=== PATIENT | male | born 1960 | race Caucasian/White ===

== ENCOUNTER 2021-09-24 13:50 | Inpatient (IN) | payer MEDICARE, SELFPAY ==
[2021-09-24] VITALS (13 sets, daily range): BP systolic 125–199; BP diastolic 75–110; PULSE 75–98; RESP 15–24; TEMP 36.2–36.5; O2SAT 94–99; BMI 27.1
--- NOTE | 2021-09-24 | DI.ECHO.S_ITS ---
[facility] +---------+ : : [address] : [address] : : : : [id number] : : : : Phone: [phone]+ Echocardiogram Report + + :Name: TITO CHEN Study Date: 09/25/2021 Height: 71.5 in: :[facility] ReadingLocation: Weight: 200 lb : : Gender: Male BSA: 2.1 m2 : :: 1960 Age: 61 yrs BP: 162/97 mmHg: :Reason For Study: R/O embolic source : :Ordering Physician: : :HARJINDER Performed By: Juanjo Lacey : :Referring: DARIAN URIBE : + + Interpretation Summary The ejection fraction is estimated to be 55-60%. Bubble studies was somewhat suboptimal (slide 62, 63 (w valsalva ) and 64 and 65 (with pushing on abdomen)). No evidence of shunting. There is no significant valvular heart disease. Procedure: A two-dimensional transthoracic echocardiogram with color flow and Doppler was performed. The study quality was technically adequate. There is no prior echocardiogram noted for this patient. The subcostal views were difficult to obtain and are suboptimal in quality. The patient was in normal sinus rhythm during the exam. Left Ventricle: The left ventricle is normal in size and wall thickness. The ejection fraction is estimated to be 55-60%. Left ventricular wall motion is normal. Right Ventricle: The right ventricle is normal in size and function. Atria: The left atrial size is normal. The right atrium is mildly dilated. Bubble studies was somewhat suboptimal (slide 62, 63 (w valsalva ) and 64 and 65 (with pushing on abdomen)). No evidence of shunting. Mitral Valve: The mitral valve is normal. There is no mitral regurgitation noted. Aortic Valve: The aortic valve is trileaflet. The aortic valve opens well. No aortic regurgitation is present. Tricuspid Valve: The tricuspid valve is normal. There is a trace or physiologic amount of tricuspid regurgitation. Pulmonary artery pressures cannot be estimated because of the lack of a measurable TR jet velocity but the IVC suggests a CVP of around 3 mmHg. Pulmonic Valve: The pulmonic valve is normal in structure and function. Great Vessels: The aortic root is borderline dilated. The ascending aorta is normal in size. The aortic arch is normal in size. The IVC is of normal diameter and collapses greater than 50% with a sniff. This suggests a low right atrial pressure of 3 mm Hg. Pericardium/ Pleura There is no pericardial effusion. There is an anterior echo-free space consistent with a fat pad. There is no pleural effusion. MMode/2D Measurements & Calculations LVIDd: 4.8 cm LVOT diam: 2.5 cm LVIDs: 3.3 cm Ao root diam: 3.8 cm FS: 31.3 % asc Aorta Diam: 3.5 cm IVSd: 1.1 cm Ao Arch Diam (Prox Trans): 2.5 cm LVPWd: 1.0 cm LV acevedo. diameter/BSA (cm/m^2): 2.3 LV sys. diameter/BSA (cm/m^2): 1.6 LA A2 area: 17.9 cm2 RA long axis: 6.0 cm LA A4 area: 16.2 cm2 IVC diam: 1.7 cm LA length (vol): 5.8 cm LA vol: 42.8 ml LA vol index: 20.2 ml/m2 TAPSE_phl: 1.8 cm Doppler Measurements & Calculations Ao V2 max: 96.1 cm/sec LVOT Max Juanpablo: 82.9 cm/sec Ao V2 mean: 69.2 cm/sec LV V1 max P.7 mmHg Ao max P.0 mmHg LV V1 VTI: 14.1 cm Ao mean P.0 mmHg MIGUEL A(I,D): 3.8 cm2 Ao V2 VTI: 18.4 cm MIGUEL A(V,D): 4.2 cm2 sev ratio: 0.77 MIGUEL A indexed to BSA (cm^2/m^2): 1.8 MV E max juanpablo: 53.1 cm/sec PA V2 max: 75.7 cm/sec MV A max juanpablo: 78.8 cm/sec PA V2 mean: 56.0 cm/sec MV E/A: 0.67 PA mean P.0 mmHg Med Peak E' Juanpablo: 5.0 cm/sec PA pr(Accel): 40.8 mmHg E/E' med: 10.6 Lat Peak E' Juanpablo: 6.2 cm/sec E/E' lat: 8.6 E/e' average: 9.6 MV dec time: 0.16 sec SV(LVOT): 69.2 ml AV VR_phl: 0.86 MIGUEL A(VTI)/BSA_phl: 1.8 MV P1/2t-pr_phl: 46.0 msec Reading Physician:12:36 PM
--- NOTE | 2021-09-24 14:07 | DI.RAD.S_ITS ---
PROCEDURE: XR CHEST 1V INDICATIONS: chest pain TECHNIQUE: One view of the chest was acquired. COMPARISON: None. FINDINGS: Surgical changes and devices: None. Lungs and pleura: Lungs are clear. No pleural effusions or pneumothorax. Mediastinum: Mediastinal contours appear normal. Heart size is normal. Bones and chest wall: No suspicious bony lesions. Overlying soft tissues appear unremarkable. IMPRESSION: No acute process. Dictated by: Vel Morris M.D. on 09/24/2021 at 13:21 Approved by: Vel Morris M.D. on 09/24/2021 at 13:21
--- NOTE | 2021-09-24 14:14 | ED_ITS ---
HPI - Altered Mental Status General Chief Complaint: Altered Mental Status Stated Complaint: Confusion Time Seen by Provider: 09/24/21 14:12 Source: patient and family Mode of arrival: Wheelchair Limitations: altered mental status History of Present Illness HPI narrative: I received a call from [facility] earlier today. The patient was feeling fuzzy.He seemed okay to come in the POV. He has not felt well for 2 days. It was noted that his systolic blood pressure was 180s at the time that phone call. The patient is now here, complaining of not feeling well. He has not felt well for about 2 days. He denies headache, visual change, no sore throat, no difficulty swallowing. He denies chest pain, cough or dyspnea. He has no abdominal complaints. He obeys commands, he participated quickly and neurology exam. He has displaying confusion. He is discharged to time. His son says he has been this way for about 2 days. He is ambulatory without discomfort. There is no history of stroke, no immediate concerns for infection. The patient has a history of colorectal cancer, treated about 2011. He has no abdominal pain, no change in bowels, and no weight loss. His care was elsewhere, we have no records here. A significant portion of patient's past medical history was obtained from the patient's son, the patient is obviously disoriented and does not have great recall for his past medical history Review of Systems Review of Systems Narrative: The patient is a vague historian. He can offer no details beyond HPI information. Patient History Medical History (Updated 09/24/21 @ 19:45 [facility] History of colon cancer No chronic diseases present Social History household members: none Smoking Status: Current every day smoker alcohol intake: current Smoking Status: Current every day smoker Substance Use Type: marijuana Exam Initial Vital Signs Initial Vital Signs: Vital Signs Temperature 97.1 F L 09/24/21 13:57 Pulse Rate 98 H 09/24/21 13:57 Respiratory Rate 20 09/24/21 13:57 Blood Pressure 199/110 H 09/24/21 13:57 Pulse Oximetry 99 09/24/21 13:57 Const General: cooperative, well groomed, anxious and other (Slow response.) Nutritional Appearance: average body habitus Orientation: Orientation (To person and place. Not oriented to time.) [facility] Head: normocephalic and atraumatic Face and sinus: normal facial exam Mouth: oral mucosae normal Throat: posterior oropharynx normal Eyes General: appearance normal, both eyes and all related structures Pupils: PERRL EOM: EOM intact bilaterally Other: No visual field deficits noted. Neck Neck: normal visual inspection, supple and No JVD Chest Chest: No tenderness Resp Auscultation: clear to auscultation bilaterally Cardio Palpation: normal PMI Rate: regular rate Rhythm: regular rhythm Heart Sounds: S1 normal, S2 normal and no murmurs Bruits: abdominal aortic bruit Pulses: radial pulses present GI Inspection: normal to inspection Palpation: soft, No guarding and No tender Auscultation: normal bowel sounds Back/Spine/Pelvis Back: normal to inspection Skin General: no rashes or lesions noted Neuro General: patient alert, patient awake, no meningeal signs, no focal motor deficits and CN's II-XI intact bilaterally Extrem General: normal to inspection, full ROM, no pedal edema and no calf tenderness Psych Appearance: disheveled Course Course Course Narrative: The patient presented with confusion, he was disoriented to time. Significant hypertension was noted. Labetalol was given out of concern for hypertensive urgency and a CVA. CT revealed multiple subacute CVAs. He is in normal sinus rhythm. Elevated D-dimer led to CTA of the chest, there was no PE. There is notable lymphadenopathy. He has a history of colorectal cancer, reportedly in remission. Noncontrast MRI of the brain again revealed multiple infarcts sites. Giving the patient's medical history and multiple radiologic findings, metastatic disease is suspected. The patient's blood pressure is 172, there has not been further management of his blood pressure allowing for permissive hypertension. The case was discussed with the hospitalist, Dr. Tovar. He is accepted for admission. Orders Ordered: ED Orders 09/24/21 14:07 XR chest 1V Stat EKG-12 Lead Stat 09/24/21 14:10 BNP [NT-proBNP (BNP-Adult 18+)] Stat Complete Blood Count AUTO DIFF Stat Comprehensive Metabolic Panel Stat D Dimer Stat Lipase Stat Magnesium Stat Troponin & CK Cardiac Panel Stat 09/24/21 14:20 Ethanol (ETOH) Stat 09/24/21 14:21 CT head/brain wo con Stat 09/24/21 14:52 COVID19 - ADMIT ([employer] swab/PCR) Stat 09/24/21 14:58 CT angio chest PE protocol Stat MR head/brain wo con Stat 09/24/21 16:29 tox [Urine Drug Screen, Rapid] Stat Acetaminophen (Acetaminophen 325 Mg Tablet) 650 mg PO Q6HR PRN PRN Reason: Fever/Mild Pain (1-3) Hydrocodone Bitart/Acetaminophen (Hydrocodone/Acet 5/325 Tablet) 1 tab PO Q4HR PRN PRN Reason: Pain, Moderate (4-6) Aspirin (Aspirin Ec 81 Mg Tablet) 81 mg PO DAILY [facility] Atorvastatin Calcium (Atorvastatin 20 Mg Tablet) 80 mg PO BEDTIME OREN Bisacodyl (Bisacodyl 10 Mg Supp) 10 mg [place] DAILY PRN PRN Reason: Constipation Clopidogrel Bisulfate (Clopidogrel 75 Mg Tablet) 75 mg PO DAILY [facility] Docusate Sodium (Docusate 100 Mg Capsule) 100 mg PO BID [facility] Enoxaparin Sodium (Enoxaparin 40 Mg/0.4 Ml Syringe) 40 mg SUBCUT DAILY [facility] Hydromorphone HCl (Hydromorphone 0.5 Mg Inj) 0.5 mg IV Q6H PRN PRN Reason: Pain, Moderate (4-6) Dextrose/Sodium Chloride (Dextrose 5%-0.9% Ns) 1,000 mls @ 100 mls/hr IV CONT OREN Last Admin: 09/24/21 19:40 Dose: 100 mls/hr Documented by: DinaKISELMA Ibuprofen (Ibuprofen 600 Mg Tablet) 600 mg PO Q6HR PRN PRN Reason: Fever/Mild Pain (1-3) Magnesium Hydroxide (Magnesium Hydroxide 30 Ml Udc) 30 ml PO DAILY PRN PRN Reason: Constipation Naloxone HCl (Naloxone 0.4 Mg/Ml Vial) 0.2 mg IV Q2MIN PRN PRN Reason: Opiate Reversal Ondansetron HCl (Ondansetron 4 Mg/2 Ml Inj) 4 mg IV Q8HR PRN PRN Reason: Nausea And Vomiting Sennosides (Sennosides 8.6 Mg Tablet) 17.2 mg PO BEDTIME [facility] Discontinued Medications Aspirin (Aspirin 81 Mg Chew Tab) 324 mg PO NOW ONE Stop: 09/24/21 16:26 Last Admin: 09/24/21 16:35 Dose: 324 mg Documented by: LAMBERTO Influenza Virus Vaccine (Influenza Vaccine Qiv 0.5 Ml Syringe) 0.5 ml IM .ONCE ONE Stop: 09/24/21 18:46 Labetalol HCl (Labetalol 20 Mg/4 Ml Syringe) 10 mg IV NOW ONE Stop: 09/24/21 14:22 Last Admin: 09/24/21 15:06 Dose: 10 mg Documented by: LAMBERTO Vital Signs Vital signs: Vital Signs - 8 hr 09/24/21 13:57 09/24/21 14:19 09/24/21 14:37 Temperature 97.1 F L Pulse Rate 98 H 93 H 93 H Respiratory Rate 20 24 24 Blood Pressure 199/110 H 190/105 H 186/105 H Pulse Oximetry 99 98 94 09/24/21 14:49 09/24/21 15:00 09/24/21 15:01 Temperature Pulse Rate 87 90 90 Respiratory Rate 17 22 22 Blood Pressure 169/103 H Pulse Oximetry 99 96 97 09/24/21 15:06 09/24/21 15:51 09/24/21 15:53 Temperature Pulse Rate 98 H 84 81 Respiratory Rate 18 Blood Pressure 199/110 H 174/99 H Pulse Oximetry 96 98 09/24/21 16:00 09/24/21 16:15 Temperature Pulse Rate 81 82 Respiratory Rate 15 Blood Pressure 174/99 H Pulse Oximetry 95 MDM - Altered Mental Status Lab Data Result diagrams: 09/24/21 14:10 09/24/21 14:10 Labs: Lab Results 09/24/21 09/24/21 09/24/21 Range/Units 14:10 14:10 14:10 WBC 11.8 H (4.5-11.0) X10^3/uL RBC 5.96 H (4.5-5.9) X10^6/uL Hgb 17.4 (13.5-17.5) g/dL Hct 51.6 (41-53) % MCV 86.6 (80-100) fL MCH 29.2 (26-34) PG MCHC 33.7 (30-36) % RDW 14.8 (11.6-14.8) % Plt Count 369 (150-400) X10^3/uL Neut % (Auto) 74.8 (50-75) % Lymph % (Auto) 15.9 L (25-40) % Vernon % (Auto) 7.5 (3-14) % Eos % (Auto) 1.0 L (2-4) % Baso % (Auto) 0.8 (0-2) % Neut # (Auto) 8800 H (7560-5815) /uL Lymph # (Auto) 1900 (4580-1630) /uL Vernon # (Auto) 900 (0-900) /uL Eos # (Auto) 100 (0-450) /uL Baso # (Auto) 100 (0-100) /uL D-Dimer > 5250 H (<230) ng/mL Sodium 139 (137-145) mmol/L Potassium 4.2 (3.4-5.1) mmol/L Chloride 104 (98-107) mmol/L Carbon Dioxide 28 (22-32) mmol/L BUN 9 (9-20) mg/dL Creatinine 1.04 (0.66-1.25) mg/dL Estimated GFR > 60.0 (>60) mL/min BUN/Creatinine Ratio 8.7 (6-22) Glucose 105 (80-110) mg/dL Calcium 10.2 (8.4-10.2) mg/dL Magnesium 2.0 (1.6-2.3) mg/dL Total Bilirubin 0.9 (0.2-1.3) mg/dL AST 24 (17-59) IU/L ALT 17 (<50) IU/L Alkaline Phosphatase 137 H (38-126) U/L Total Creatine Kinase 29 L (55-170) U/L CK-MB (CK-2) TNP CK-MB (CK-2) Rel Index TNP Troponin I < 0.012 (0.01-0.034) ng/mL NT-Pro-B Natriuret Pep 305 H (<125) pg/mL Total Protein 8.6 H (6.3-8.2) g/dL Albumin 4.5 (3.5-5.0) g/dL Globulin 4.1 (1.7-4.1) g/dL Albumin/Globulin Ratio 1.1 (1.0-2.8) Lipase 96 (23-300) U/L U Opiates 300ng/mL cut (Negative) Ur Oxycodone Screen (Negative) Urine Methadone Screen (Negative) Ur Barbiturates Screen (Negative) U Tricyclic Antidepress (Negative) Ur Phencyclidine Scrn (Negative) Ur Amphetamines Screen (Negative) U Methamphetamines Scrn (Negative) Ur MDMA Scrn (Ecstasy) (Negative) U Benzodiazepines Scrn (Negative) Urine Cocaine Screen (Negative) U Marijuana (THC) Screen (Negative) Ethyl Alcohol ( - 10) mg/dL SARS-CoV-2 (PCR) (Negative) 09/24/21 09/24/21 09/24/21 Range/Units 14:20 14:52 16:29 WBC (4.5-11.0) X10^3/uL RBC (4.5-5.9) X10^6/uL Hgb (13.5-17.5) g/dL Hct (41-53) % MCV (80-100) fL MCH (26-34) PG MCHC (30-36) % RDW (11.6-14.8) % Plt Count (150-400) X10^3/uL Neut % (Auto) (50-75) % Lymph % (Auto) (25-40) % Vernon % (Auto) (3-14) % Eos % (Auto) (2-4) % Baso % (Auto) (0-2) % Neut # (Auto) (1011-1595) /uL Lymph # (Auto) (8667-5007) /uL Vernon # (Auto) (0-900) /uL Eos # (Auto) (0-450) /uL Baso # (Auto) (0-100) /uL D-Dimer (<230) ng/mL Sodium (137-145) mmol/L Potassium (3.4-5.1) mmol/L Chloride (98-107) mmol/L Carbon Dioxide (22-32) mmol/L BUN (9-20) mg/dL Creatinine (0.66-1.25) mg/dL Estimated GFR (>60) mL/min BUN/Creatinine Ratio (6-22) Glucose (80-110) mg/dL Calcium (8.4-10.2) mg/dL Magnesium (1.6-2.3) mg/dL Total Bilirubin (0.2-1.3) mg/dL AST (17-59) IU/L ALT (<50) IU/L Alkaline Phosphatase (38-126) U/L Total Creatine Kinase (55-170) U/L CK-MB (CK-2) CK-MB (CK-2) Rel Index Troponin I (0.01-0.034) ng/mL NT-Pro-B Natriuret Pep (<125) pg/mL Total Protein (6.3-8.2) g/dL Albumin (3.5-5.0) g/dL Globulin (1.7-4.1) g/dL Albumin/Globulin Ratio (1.0-2.8) Lipase (23-300) U/L U Opiates 300ng/mL cut Negative (Negative) Ur Oxycodone Screen Negative (Negative) Urine Methadone Screen Negative (Negative) Ur Barbiturates Screen Negative (Negative) U Tricyclic Antidepress Negative (Negative) Ur Phencyclidine Scrn Negative (Negative) Ur Amphetamines Screen Negative (Negative) U Methamphetamines Scrn Negative (Negative) Ur MDMA Scrn (Ecstasy) Negative (Negative) U Benzodiazepines Scrn Negative (Negative) Urine Cocaine Screen Negative (Negative) U Marijuana (THC) Screen Positive H (Negative) Ethyl Alcohol < 10 ( - 10) mg/dL SARS-CoV-2 (PCR) Negative (Negative) Imaging Data Chest x-ray: Radiologist's Impression: No acute process. CT scan - head: Radiologist's Impression: [place] [address] CT Scan Report Signed Patient: Kang Dexter MR#: [id number] : 1960 Acct:[id number] Age/Sex: 61 / M Date of Service: 09/24/21 Loc: ED Accession Number: [id number] ?? Procedure: CT head/brain wo con Ordering Provider: Contreras Pelayo MD PROCEDURE:? CT HEAD/BRAIN WO CON ? INDICATIONS:? confusion ? TECHNIQUE:? Noncontrast 4.5 mm thick angled axial sections acquired from the foramen magnum to the vertex, with coronal and sagittal reformats.? For radiation dose reduction, the following was used:? automated exposure control, adjustment of mA and/or kV according to patient size.? ? COMPARISON:? None. ? FINDINGS:? Image quality:? Excellent.? ? CSF spaces:? Basal cisterns are patent.? No extra-axial fluid collections.? The ventricles are symmetric in size and shape.? ? Brain:? No intracranial bleeds or masses.? Moderate subacute versus chronic infarct within the right parietal occipital lobe.? Small chronic versus subacute left frontal infarct.? There is cerebral volume loss for age, with resultant ventricular and sulcal prominence.? There are periventricular and deep white matter chronic small vessel ischemic changes.? There is intracranial internal carotid artery atherosclerosis.? ? Skull and face:? Calvarium and visualized facial bones appear intact, without suspicious lesions.? ? Sinuses:? Visualized sinuses and mastoids are clear.? ? IMPRESSION:? 1. 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 2. No acute intracranial abnormality.? ? ? Dictated by: Vel Morris M.D. on 09/24/2021 at 13:44 ? ? Approved by: Vel Morris M.D. on 09/24/2021 at 13:45?? CTA chest: Radiologist's Impression: [address] [address] [address] Scan Report Signed Patient: Kang Dexter MR#: [id number] : 1960 Acct:[id number] Age/Sex: 61 / M Date of Service: 09/24/21 Loc: ED Accession Number: [id number] ?? Procedure: CT angio chest PE protocol Ordering Provider: Contreras Pelayo MD PROCEDURE:? CT ANGIO CHEST PE PROTOCOL ? INDICATIONS:? CVA ? TECHNIQUE:? After the administration of intravenous contrast, 2 mm thick sections acquired from the pulmonary apices to the posterior costophrenic angles.? 3-dimensional maximum intensity projection (MIP) coronal and sagittal reformats were then acquired through the thorax.? For radiation dose reduction, the following was used:? automated exposure control, adjustment of mA and/or kV according to patient size.? ? COMPARISON:? [facility], CR, XR CHEST 1V, 09/24/2021, 14:10. ? FINDINGS:? Image quality:? Excellent.? ? Pulmonary arteries:? Pulmonary arteries are normal in size, and demonstrate no intraluminal filling defects to suggest central pulmonary embolism.? ? Lungs and pleura:? Mild apical predominant emphysematous changes.? No acute airspace opacity.? No pleural effusions or pneumothorax.? Central and peripheral airways are patent.? ? Mediastinum:? Normal heart size.? No pericardial effusion.? Mild coronary atherosclerosis.? There are numerous prominent and a few threshold enlarged upper mediastinal lymph nodes (including precarinal and paratracheal and subcarinal lymph nodes as well as some para-esopgaheal lymph nodes).? These are nonspecific but may be reactive. ? Bones and chest wall:? No suspicious bony lesions.? Ribs and thoracic spine appear intact throughout.? Thyroid gland uniform.? No axillary or supraclavicular adenopathy.? ? Abdomen:? Visualized upper abdominal solid organs appear normal in the early a rterial phase of enhancement.? ? IMPRESSION:? Mild mediastinal lymphadenopathy, nonspecific.? This could be reactive although primary lymphoproliferative disorder or metastatic disease could appear similar.? Clinical correlation will be needed along with potentially follow-up to help differentiate. ? No acute airspace opacity in the lungs.? Mild apical predominant emphysematous changes. ? No pulmonary embolism. ? ? Dictated by: Sidney Blake M.D. on 09/24/2021 at 15:16 ? ? Approved by: Sidney Blake M.D. on 09/24/2021 at 15:21?? Brain MRI: Radiologist's Impression: [facility] [address] Magnetic Resonance Report Signed Patient: Kang Dexter MR#: [id number] : 1960 Acct:[id number] Age/Sex: 61 / M Date of Service: 09/24/21 Loc: ED Accession Number: [id number] ?? Procedure: MR head/brain wo con Ordering Provider: Contreras Pelayo MD PROCEDURE:? MR HEAD/BRAIN WO CON ? INDICATIONS:? CVA ? TECHNIQUE:? Noncontrast axial T1 spin echo, axial T2 fast spin echo, sagittal and axial FLAIR, coronal T2 fast spin echo, axial gradient echo, axial diffusion and ADC through the brain.? ? COMPARISON:? [facility], CT, CT HEAD/BRAIN WO CON, 09/24/2021, 14:37. ? FINDINGS:? Image quality:? Excellent.? ? CSF Spaces:? Basal cisterns are patent.? No extra-axial fluid collections.? Ventricles are normal in size and shape.? ? Brain:? Global cerebral volume loss with moderate chronic microvascular ischemic changes. ?Remote right parietal infarct with encephalomalacia and gliosis.? There are 2 nonspecific areas of restricted diffusion with corresponding increased FLAIR signal in the left frontal lobe and left posterior parieto-occipital lobe.? These likely represent subacute infarcts although this is not entirely definitive.? No findings of mass effect or midline shift.? The major intracranial vascular flow-related signal voids are maintained. ? Skull and face:? Calvarium has normal marrow signal.? Orbits appear normal.? ? Sinuses:? Sinuses and mastoids are clear.? ? IMPRESSION:? Areas of restricted diffusion in the left frontal lobe and left parieto- occipital lobe are most likely subacute infarcts, although this is not entirely definitive and there is some concern for metastatic disease given the history of colon cancer.? A follow-up contrast-enhanced exam is recommended. ? ? ? Remote right parietal lobe infarct with encephalomalacia and gliosis. ? Global cerebral volume loss and moderate chronic microvascular ischemic change. ? Dictated by: Sidney Blake M.D. on 09/24/2021 at 15:41 ? ? Approved by: Sidney Blake M.D. on 09/24/2021 at 15:48?? ECG Data Attestation: I personally reviewed and interpreted this ECG as follows: (Normal sinus rhythm rate 93 beats per minute. Left axis deviation. Incomplete RBBB. Possible old inferior [place]. No acute ST T wave changes.) Critical Care Time Critical Care Time Critical Care Time: Yes Total Critical Care Time: 60 Attestation: Time included initial assessment the patient, evaluation EKG, radiology and lab data, and further discussion with the patient and his son. The patient has been informed of the clinical findings. The case was discussed with the accepting physician. Discharge Plan Departure Patient Disposition: Admitted As Inpatient Clinical Impression: CVA (cerebral vascular accident), Hypertensive urgency, D-dimer, elevated, Lymphadenopathy, thoracic, History of colorectal cancer Admit Date/Time: 09/24/21 16:30 Admit Provider: Debi Tovar
--- NOTE | 2021-09-24 14:21 | DI.CT.S_ITS ---
PROCEDURE: CT HEAD/BRAIN WO CON INDICATIONS: confusion TECHNIQUE: Noncontrast 4.5 mm thick angled axial sections acquired from the foramen magnum to the vertex, with coronal and sagittal reformats. For radiation dose reduction, the following was used: automated exposure control, adjustment of mA and/or kV according to patient size. COMPARISON: None. FINDINGS: Image quality: Excellent. CSF spaces: Basal cisterns are patent. No extra-axial fluid collections. The ventricles are symmetric in size and shape. Brain: No intracranial bleeds or masses. Moderate subacute versus chronic infarct within the right parietal occipital lobe. Small chronic versus subacute left frontal infarct. There is cerebral volume loss for age, with resultant ventricular and sulcal prominence. There are periventricular and deep white matter chronic small vessel ischemic changes. There is intracranial internal carotid artery atherosclerosis. Skull and face: Calvarium and visualized facial bones appear intact, without suspicious lesions. Sinuses: Visualized sinuses and mastoids are clear. IMPRESSION: 1. 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 2. No acute intracranial abnormality. Dictated by: Vel Morris M.D. on 09/24/2021 at 13:44 Approved by: Vel Morris M.D. on 09/24/2021 at 13:45
[2021-09-24 14:23] LABS: Add Manual Diff / Slide Review NO; Basophils Absolute Auto 100 /uL (0-100); Basophils Percent Auto 0.8 % (0-2); Eosinophils Absolute Auto 100 /uL (0-450); Hematocrit 51.6 % (41-53); Hemoglobin 17.4 g/dL (13.5-17.5); Lymphocytes Absolute Auto 1900 /uL (1100-4500); Lymphocytes Percent Auto 15.9 % (25-40); Mean Corpuscular HGB Conc 33.7 % (30-36); Mean Corpuscular Hemoglobin 29.2 PG (26-34); Mean Corpuscular Volume 86.6 fL (80-100); Monocytes Absolute Auto 900 /uL (0-900); Monocytes Percent Auto 7.5 % (3-14); Neutrophils Absolute Auto 8800 /uL (1500-7000); Neutrophils Percent Auto 74.8 % (50-75); Platelet Count 369 X10^3/uL (150-400); Red Blood Cell Count 5.96 X10^6/uL (4.5-5.9); Red Cell Distribution Width 14.8 % (11.6-14.8); White Blood Cell Count 11.8 X10^3/uL (4.5-11.0)
[2021-09-24 14:34] LABS: Alanine Aminotransferase 17 IU/L (<50); Albumin 4.5 g/dL (3.5-5.0); Albumin Globulin Ratio 1.1 (1.0-2.8); Alkaline Phosphatase 137 U/L (38-126); Aspartate Aminotransferase 24 IU/L (17-59); BUN Creatinine Ratio 8.7 (6-22); Bilirubin Total 0.9 mg/dL (0.2-1.3); Blood Urea Nitrogen 9 mg/dL (9-20); Calcium 10.2 mg/dL (8.4-10.2); Carbon Dioxide 28 mmol/L (22-32); Chloride 104 mmol/L (98-107); Creatine Kinase 29 U/L (55-170); Estimated Glomerular Filt Rate > 60.0 mL/min (>60); Globulin 4.1 g/dL (1.7-4.1); Glucose 105 mg/dL (80-110); HEMOLYSIS < 15 (0-50); Lipase 96 U/L (23-300); Potassium 4.2 mmol/L (3.4-5.1); Sodium 139 mmol/L (137-145); Total Protein 8.6 g/dL (6.3-8.2)
[2021-09-24 14:41] LABS: D Dimer > 5250 ng/mL (<230)
[2021-09-24 14:46] LABS: Ethanol (ETOH) < 10 mg/dL
[2021-09-24 14:46] LABS: NT-proBNP (BNP-Adult 18+) 305 pg/mL (<125); Troponin I < 0.012 ng/mL (0.01-0.034)
--- NOTE | 2021-09-24 14:58 | DI.MRI.S_ITS ---
PROCEDURE: MR HEAD/BRAIN WO CON INDICATIONS: CVA TECHNIQUE: Noncontrast axial T1 spin echo, axial T2 fast spin echo, sagittal and axial FLAIR, coronal T2 fast spin echo, axial gradient echo, axial diffusion and ADC through the brain. COMPARISON: [facility], CT, CT HEAD/BRAIN WO CON, 09/24/2021, 14:37. FINDINGS: Image quality: Excellent. CSF Spaces: Basal cisterns are patent. No extra-axial fluid collections. Ventricles are normal in size and shape. Brain: Global cerebral volume loss with moderate chronic microvascular ischemic changes. Remote right parietal infarct with encephalomalacia and gliosis. There are 2 nonspecific areas of restricted diffusion with corresponding increased FLAIR signal in the left frontal lobe and left posterior parieto-occipital lobe. These likely represent subacute infarcts although this is not entirely definitive. No findings of mass effect or midline shift. The major intracranial vascular flow-related signal voids are maintained. Skull and face: Calvarium has normal marrow signal. Orbits appear normal. Sinuses: Sinuses and mastoids are clear. IMPRESSION: Areas of restricted diffusion in the left frontal lobe and left parieto-occipital lobe are most likely subacute infarcts, although this is not entirely definitive and there is some concern for metastatic disease given the history of colon cancer. A follow-up contrast-enhanced exam is recommended. Remote right parietal lobe infarct with encephalomalacia and gliosis. Global cerebral volume loss and moderate chronic microvascular ischemic change. Dictated by: Sidney Blake M.D. on 09/24/2021 at 15:41 Approved by: Sidney Blake M.D. on 09/24/2021 at 15:48
--- NOTE | 2021-09-24 14:58 | DI.CT.S_ITS ---
PROCEDURE: CT ANGIO CHEST PE PROTOCOL INDICATIONS: CVA TECHNIQUE: After the administration of intravenous contrast, 2 mm thick sections acquired from the pulmonary apices to the posterior costophrenic angles. 3-dimensional maximum intensity projection (MIP) coronal and sagittal reformats were then acquired through the thorax. For radiation dose reduction, the following was used: automated exposure control, adjustment of mA and/or kV according to patient size. COMPARISON: [facility], CR, XR CHEST 1V, 09/24/2021, 14:10. FINDINGS: Image quality: Excellent. Pulmonary arteries: Pulmonary arteries are normal in size, and demonstrate no intraluminal filling defects to suggest central pulmonary embolism. Lungs and pleura: Mild apical predominant emphysematous changes. No acute airspace opacity. No pleural effusions or pneumothorax. Central and peripheral airways are patent. Mediastinum: Normal heart size. No pericardial effusion. Mild coronary atherosclerosis. There are numerous prominent and a few threshold enlarged upper mediastinal lymph nodes (including precarinal and paratracheal and subcarinal lymph nodes as well as some para-esopgaheal lymph nodes). These are nonspecific but may be reactive. Bones and chest wall: No suspicious bony lesions. Ribs and thoracic spine appear intact throughout. Thyroid gland uniform. No axillary or supraclavicular adenopathy. Abdomen: Visualized upper abdominal solid organs appear normal in the early arterial phase of enhancement. IMPRESSION: Mild mediastinal lymphadenopathy, nonspecific. This could be reactive although primary lymphoproliferative disorder or metastatic disease could appear similar. Clinical correlation will be needed along with potentially follow-up to help differentiate. No acute airspace opacity in the lungs. Mild apical predominant emphysematous changes. No pulmonary embolism. Dictated by: Sidney Blake M.D. on 09/24/2021 at 15:16 Approved by: Sidney Blake M.D. on 09/24/2021 at 15:21
[2021-09-24] MEDS: LABETALOL 20 MG/4 ML SYRINGE 10 MG IV (15:06)
[2021-09-24 15:53] LABS: COVID19 - ADMIT (NP swab/PCR) Negative (Negative)
[2021-09-24] MEDS: ASPIRIN 81 MG CHEW TAB 324 MG PO (16:35)
[2021-09-24 16:38] LABS: UR Morphine/Opiate cutoff 300 Negative (Negative); Ur Creatinine Normal (Normal); Ur Specific Gravity Normal (Normal); Urine Amphetamines Negative (Negative); Urine Barbiturates Negative (Negative); Urine Benzodiazepines Negative (Negative); Urine Cocaine Negative (Negative); Urine MDMA Negative (Negative); Urine Methadone Negative (Negative); Urine Methamphetamines Negative (Negative); Urine Oxycodone Negative (Negative); Urine Phencyclidine Negative (Negative); Urine Tetrahydrocannabinol Positive (Negative); Urine Tricyclic Antidepressant Negative (Negative); Urine pH Normal (Normal)
--- NOTE | 2021-09-24 17:22 | PC.NURSE ---
Day shift: Pt on unit from ED at approx 1715. He is calm ad cooperative. He is also A&Ox4. Son in room for support. Oriented to room and call light. Agrees to not get OOB w/o help from staff.
--- NOTE | 2021-09-24 19:24 | P.HP_ITS ---
History of Present Illness History of Present Illness Date Patient Seen: 09/24/21 Time Patient Seen: 19:24 Chief complaint: Confusion Narrative: Kang Dexter is a 61 yr old male with a hx of colon cancer 2011 brought in to ED by [facility] earlier today.? The patient was reported to feeling poorly x2 days, he present to the ED with slow speech, confused, limited participation in HPI, ROS, or medications. The son was only able to confirm a history of colon cancer.?The patient denied headache, visual change, no sore throat, no difficulty swallowing, chest pain, cough or dyspnea, or abdominal complaints.? He has no abdominal pain, no change in bowels, and no weight loss.? His care was elsewhere, we have no records here.? He obeys commands, he participated in neurology exam.? He has displaying confusion.? He is discharged to time.? His son says he has been this way for about 2 days.? He is ambulatory without discomfort.? There is no history of stroke, no immediate concerns for infection.? A significant portion of patient's past medical history was obtained in ED from the patient's son, being the patient was disoriented, confused and had no recall. Upon admit patient is alert and orientated denies taking any medication at this time but states that he previously had been on multiple medications but unable to recall what they were or for what medical conditions. Patient originally presented to the ED with a BP 180/192, upon admit temp 97.1?, BP 174/99, HR 82, R 15, O2 saturation 95% on room air. Patient does have a mildly elevated WBC 11.8, with a left shift neutrophils 8800, the remainder of CBC and CMP WNL. Patient does have alk phos 137. Urinalysis was negative for infection tox screen was positive for THC. Total creatinine kinase 29, troponin WNL, BNP 305, EtOH negative. Patient's EKG demonstrated Normal sinus rhythm wit h a left axis deviation, incomplete right bundle branch block, inferior infarct , age undetermined. Patient's chest x-ray demonstrated no acute cardiopulmonary processes. Patient's D-dimer> 5250. Patient's CTA demonstrated mild mediastinal lymphadenopathy, nonspecific.? This could be reactive although primary lymphoproliferative disorder or metastatic disease could appear similar.? Clinical correlation will be needed along with potentially follow-up to help differentiate. No acute airspace opacity in the lungs.? Mild apical predominant emphysematous changes. No pulmonary embolism. Head CT demonstrated subacute versus chronic right parietal occipital and left frontal lobe infarcts, with no acute intracranial abnormality.? Patient's brain MRI demonstrated areas of restricted diffusion in the left frontal lobe and left parieto-occipital lobe are most likely subacute infarcts, although this is not entirely definitive and there is some concern for metastatic disease given the history of colon cancer. Remote right parietal lobe infarct with encephalomalacia and gliosis. Global cerebral volume loss and moderate chronic microvascular ischemic change. Patient to be admitted for subacute CVA, hypertensive urgency, lymphadenopathy, leukocytosis thoracic, possible metastatic disease, with a history of colon cancer. Patient History Medical History (Updated 09/24/21 @ 19:45 by LIBERTY Sullivan) History of colon cancer No chronic diseases present Family & Social History Family History (Updated 09/24/21 @ 20:23 by LIBERTY Sullivan) Mother Cancer Father Cancer Social History: household members lives alone, retired, grown son lives close by. Prior Living Arrangements House Safety & Behavioral: Feels Safe in Current Yes Environment Been Physically Hurt or No Threatened By a Person Suicidal Ideation Description None Suicide Plan Description No Plan Tobacco & Substance use: Tobacco type cigarettes,cannabis/marijuana Smoking Status Current every day smoker Smoking packs per day 0.5 x 40 yrs alcohol intake current alcohol intake frequency holiday/special occasion Substance Use Type marijuana Review of Systems Review of Systems Narrative: All 12 point systems reviewed with the patient and are negative except otherwise documented. Exam Vital Signs (past 8 hours): - 09/24/21 13:57 09/24/21 14:19 09/24/21 14:37 Temperature 97.1 F L Pulse Rate 98 H 93 H 93 H Respiratory Rate 20 24 24 Blood Pressure 199/110 H 190/105 H 186/105 H Pulse Oximetry 99 98 94 09/24/21 14:49 09/24/21 15:00 09/24/21 15:01 Temperature Pulse Rate 87 90 90 Respiratory Rate 17 22 22 Blood Pressure 169/103 H Pulse Oximetry 99 96 97 09/24/21 15:06 09/24/21 15:51 09/24/21 15:53 Temperature Pulse Rate 98 H 84 81 Respiratory Rate 18 Blood Pressure 199/110 H 174/99 H Pulse Oximetry 96 98 09/24/21 16:00 09/24/21 16:15 Temperature Pulse Rate 81 82 Respiratory Rate 15 Blood Pressure 174/99 H Pulse Oximetry 95 Oxygen Delivery Method Room Air Narrative Exam Narrative: General: Patient is a well-developed, well-nourished male in no distress at this time. HEENT: Normocephalic, atraumatic, extraocular muscles intact, oral pharynx is clear and mucous membranes are moist. Neck is supple and symmetric, trachea is midline, no adenopathy, no thyroid enlargement, nontender, no masses palpated. Negative for JVD Chest: Normal AP diameter and contour without kyphoscoliosis, no nasal flaring, retractions, or tachypneic labored breathing Lungs: Auscultation of all lung bell are clear without adventitious sounds, wheezes, rhonchi, or rales. Cardio: S1 & S2 with regular rate and rhythm without murmur, rubs, or gallops, no carotid bruit, no cardiac pulsations present. Abdomen: Soft nontender, negative for organomegaly, or masses. Bowel sounds are present in all 4 quadrants without guarding or rebound, no CVA tenderness. Musculoskeletal: Muscle strength and tone are equal within normal limits, no deformity, crepitus, effusions, cyanosis, clubbing or edema present. Full range of motion intact radial and pedal pulses are normal. Skin: Warm dry and intact without rashes, ulcerations or petechiae. Neuro: Alert, awake, and orientated-but has very poor recall, strength is +5/5 in all extremities, sensation to touch intact, no gross deficits noted of crania l nerves. Psych: Patient has a disheveled appearance. Objective Labs Result Diagrams: 09/24/21 14:10 09/24/21 14:10 Labs: Laboratory Results - last 24 hr 09/24/21 09/24/21 09/24/21 14:10 14:10 14:10 WBC 11.8 H RBC 5.96 H Hgb 17.4 Hct 51.6 MCV 86.6 MCH 29.2 MCHC 33.7 RDW 14.8 Plt Count 369 Neut % (Auto) 74.8 Lymph % (Auto) 15.9 L [place] % (Auto) 7.5 Eos % (Auto) 1.0 L Baso % (Auto) 0.8 Neut # (Auto) 8800 H Lymph # (Auto) 1900 [place] # (Auto) 900 Eos # (Auto) 100 Baso # (Auto) 100 D-Dimer > 5250 H Sodium 139 Potassium 4.2 Chloride 104 Carbon Dioxide 28 BUN 9 Creatinine 1.04 Estimated GFR > 60.0 BUN/Creatinine Ratio 8.7 Glucose 105 Calcium 10.2 Magnesium 2.0 Total Bilirubin 0.9 AST 24 ALT 17 Alkaline Phosphatase 137 H Total Creatine Kinase 29 L CK-MB (CK-2) TNP CK-MB (CK-2) Rel Index TNP Troponin I < 0.012 NT-Pro-B Natriuret Pep 305 H Total Protein 8.6 H Albumin 4.5 Globulin 4.1 Albumin/Globulin Ratio 1.1 Lipase 96 U Opiates 300ng/mL cut Ur Oxycodone Screen Urine Methadone Screen Ur Barbiturates Screen U Tricyclic Antidepress Ur Phencyclidine Scrn Ur Amphetamines Screen U Methamphetamines Scrn Ur MDMA Scrn (Ecstasy) U Benzodiazepines Scrn Urine Cocaine Screen U Marijuana (THC) Screen Ethyl Alcohol SARS-CoV-2 (PCR) 09/24/21 09/24/21 09/24/21 14:20 14:52 16:29 WBC RBC Hgb Hct MCV MCH MCHC RDW Plt Count Neut % (Auto) Lymph % (Auto) [place] % (Auto) Eos % (Auto) Baso % (Auto) Neut # (Auto) Lymph # (Auto) [place] # (Auto) Eos # (Auto) Baso # (Auto) D-Dimer Sodium Potassium Chloride Carbon Dioxide BUN Creatinine Estimated GFR BUN/Creatinine Ratio Glucose Calcium Magnesium Total Bilirubin AST ALT Alkaline Phosphatase Total Creatine Kinase CK-MB (CK-2) CK-MB (CK-2) Rel Index Troponin I NT-Pro-B Natriuret Pep Total Protein Albumin Globulin Albumin/Globulin Ratio Lipase U Opiates 300ng/mL cut Negative Ur Oxycodone Screen Negative Urine Methadone Screen Negative Ur Barbiturates Screen Negative U Tricyclic Antidepress Negative Ur Phencyclidine Scrn Negative Ur Amphetamines Screen Negative U Methamphetamines Scrn Negative Ur MDMA Scrn (Ecstasy) Negative U Benzodiazepines Scrn Negative Urine Cocaine Screen Negative U Marijuana (THC) Screen Positive H Ethyl Alcohol < 10 SARS-CoV-2 (PCR) Negative Assessment & Plan Assessment & Plan narrative: Kang Dexter is a 61-year-old female who was brought over from [facility], where he was found by EMS to be confused with slow speech. Patient has a history of colon cancer in 2011. Patient was found to have hypertensive urgency, multiple subacute infarcts on brain MRI, also thoracic lymphadenopathy with leukocytosis and a left shift. Due to patient's confusion unable to obtain accurate HPI, ROS, personal medical history, or medications. Patient has not been seen at [facility] or by failure did priors so no records exist in our system. Patient admitted for multiple subacute CVA, hypertensive urgency, lymphadenopathy of the thoracic, with leukocytosis, suspect metastatic disease in the setting of history of colon cancer 2011. 1. Subacute CVA, left parieto-occipital lobe, multiple, in the setting of hypertensive urgency, tobacco abuse, acute, present on admission -differential diagnosis TIA, stroke, ischemic stroke, intracranial hemorrhage, subdural hematoma, epidural hematoma, seizure, brain tumor, migraine, vertigo, hypoglycemia, [place] Tannery syndrome, multiple sclerosis, aortic dissection. -patient admitted for risk stratification -NIH:1 -half pack per day times 40 years tobacco abuse -patient education regarding smoking cessation -initial BP readings 199/110, 190/105, 186/105, 180/192-patient is now stable with a BP of 174/99 -Start lisinopril 20mg QD tomorrow -Lipid panel ordered -D-dimer> 5250. -CTA demonstrated no acute airspace opacity in the lungs.? Mild apical predominant emphysematous changes. No pulmonary embolism. -Head CT demonstrated subacute versus chronic right parietal occipital and left frontal lobe infarcts, with no acute intracranial abnormality.? -Brain MRI demonstrated areas of restricted diffusion in the left frontal lobe and left parieto-occipital lobe are most likely subacute infarcts, although this is not entirely definitive and there is some concern for metastatic disease given the history of colon cancer. Remote right parietal lobe infarct with encephalomalacia and gliosis. Global cerebral volume loss and moderate chronic microvascular ischemic change. -patient placed on Plavix 75 mg, ASA 81 mg, Lipitor 80 mg, Lovenox 40 mg -echo ordered for tomorrow -D5 normal saline at 100 cc/HR-stop as midnight 09/24/2021 -Recommend outpatient neurology follow-up upon discaharge. 2. Lymphadenopathy, mediastinal/thoracic, with leukocytosis with left shift, in the setting of history of colon cancer 2011, acute on chronic, present on admission -suspect metastatic disease-lung cancer possible secondary to colon cancer. -Family History: mother of pancreatic cancer, father of brain cancer at 43 years of age -CTA demonstrated mild mediastinal lymphadenopathy, nonspecific.? This could be reactive although primary lymphoproliferative disorder or metastatic disease could appear similar. -procalcitonin, GGT ordered -recommend outpatient onocology consult -consider MRI w/contrast for further evaluation -WBC 11.8, neutrophils 8800 3. Overweight as evidence by BMI of 27.1, acute on chronic, present on admission -dietary counseling to be ordered Code status:Full Surrogate decision maker: Son Sebas Dexter COVID PCR:Negative COVID vaccination: Moderna 2020 fully DVT/VTE prophylaxis:Lovenox 40mg & SCD's Disposition: Patient admitted for observation risk stratification, expected length stay less than 2 midnights I have utilized all available immediate resources to obtain, update, or review the patient's current medications. I confirmed that the patient's advanced care plan is present, Code status is documented and/or surrogate decision maker is listed in the patient's medical record. Time Spent With Patient Critical Care time: I spent a total of [] minutes of critical care time on this patient's care today; this time is exclusive of procedural time. Scores GCS Marysol coma scale eye opening: Spontaneous Marysol coma scale verbal response: Orientated Olds coma scale motor response: Obey commands Olds coma scale total score: 15 NIHSS Level of Conciousness: Alert, keenly responsive Ask month/age: Answers both questions correctly. Open/close eyes, close hand: Performs both tasks correctly Best gaze horizontal: Normal Visual bell: Partial hemianopia Facial palsy: Normal symetrical movement Left arm drift: No drift for full 10 sec Right arm drift: No drift for full 10 sec Left leg drift: No drift for full 5 sec Right leg drift: No drift for full 5 sec Limb ataxia: Absent Sensory on face/arms/legs: Normal, no sensory loss Best language: No aphasia, normal Dysarthria: Normal Extinction or inattention: No abnormality Total NIH Stroke scale score: 1
[2021-09-24] MEDS: DEXTROSE 5%-0.9% NS 1,000 ML 100 ML IV (19:40)
[2021-09-24 20:25] LABS: Cholesterol 237 mg/dL (140-199); HDL Cholesterol 34 mg/dL (40-60); LDL Cholesterol Calculated 178 mg/dL (<100); Triglycerides 123 mg/dL (35-150)
[2021-09-24 20:43] LABS: Procalcitonin 0.07 ng/mL (<0.5)
[2021-09-24 20:57] LABS: Gamma Glutamyl Transpeptidase 31 U/L (15-73)
[2021-09-24] MEDS: ATORVASTATIN 20 MG TABLET 80 MG PO (21:05)
[2021-09-24 21:10] LABS: Troponin I < 0.012 ng/mL (0.01-0.034)
[2021-09-25 05:00] VITALS: BP 134/77; PULSE 68; RESP 18; TEMP 36.4; O2SAT 94
[2021-09-25 07:03] LABS: Troponin I < 0.012 ng/mL (0.01-0.034)
[2021-09-25 07:18] LABS: Add Manual Diff / Slide Review NO; Basophils Absolute Auto 100 /uL (0-100); Basophils Percent Auto 0.7 % (0-2); Eosinophils Absolute Auto 200 /uL (0-450); Eosinophils Percent Auto 2.8 % (2-4); Hematocrit 44.4 % (41-53); Hemoglobin 14.9 g/dL (13.5-17.5); Lymphocytes Absolute Auto 1300 /uL (1100-4500); Lymphocytes Percent Auto 16.8 % (25-40); Mean Corpuscular HGB Conc 33.4 % (30-36); Mean Corpuscular Hemoglobin 29.2 PG (26-34); Mean Corpuscular Volume 87.4 fL (80-100); Monocytes Absolute Auto 700 /uL (0-900); Monocytes Percent Auto 9.2 % (3-14); Neutrophils Absolute Auto 5300 /uL (1500-7000); Neutrophils Percent Auto 70.5 % (50-75); Platelet Count 314 X10^3/uL (150-400); Red Blood Cell Count 5.09 X10^6/uL (4.5-5.9); Red Cell Distribution Width 14.6 % (11.6-14.8); White Blood Cell Count 7.6 X10^3/uL (4.5-11.0)
[2021-09-25 07:30] VITALS: BP 152/84; PULSE 70; RESP 16; TEMP 37.1; O2SAT 99
[2021-09-25] MEDS: CLOPIDOGREL 75 MG TABLET PO (08:21)
[2021-09-25] MEDS: ENOXAPARIN 40 MG/0.4 ML SYRINGE SUBCUT (08:21)
[2021-09-25] MEDS: ASPIRIN EC 81 MG TABLET PO (08:21)
[2021-09-25 08:22] VITALS: BP 134/77; PULSE 68
[2021-09-25] MEDS: lisinopriL 20 MG TABLET PO (08:22)
--- NOTE | 2021-09-25 11:00 | OT.IP.EVAL ---
Current Diagnoses Cerebral infarction, unspecified (09/24/21) Past Medical History (Last Updated 09/24/21 @ 19:45 [facility] History of colon cancer No chronic diseases present Occupational Therapy Inpatient Evaluation/Re-Eval M1 PT/OT-IP Prior Functional Status Start: 09/25/21 08:51 Freq: NEEDED Status: Active Protocol: Document 09/25/21 12:35 J (Rec: 09/25/21 12:44 J [id number]) Medical Review Prior Functional Status Medical History Reviewed Yes Diet/Fluid Consistency Regular Communication Pt was able to communicate, but had moderate difficulty word finding and producing speech. Mobility and Gait Occasionally uses SPC for amb and is typically limited w/amb to several hundred yards. Pt has had limited amb since colonrectal cancer in 2011. Activities of Daily Living and IADL's Indep in all ADLs Social History Household Members none Living Arrangements House Number of Floors (Floors) 3 or More Floors Number of Stairs To Enter/Railing? 1-2 CHILO w/no railing, enter on main floor, two flights of 12 steps inside, railing on R when ascending Home Environment Standard Height Toilet,Walk in Shower Home Equipment Straight Cane,Hand Held Shower ,Long Handled Shoe Horn, Felt Carbonizer,Sock Aid,Grab Bars Near Toilet Employment Status Retired Additional Social History Comment Son was in room during session and assisted in providing history. M2 OT-IP Current Condition Start: 09/25/21 13:05 Freq: Status: Active Protocol: Document 09/25/21 10:19 [facility] (Rec: 09/25/21 13:29 [facility] [id number]) Occupational Therapy Current Condition Current Condition Evaluation Date 09/25/21 Treatment Diagnosis CVA left parietal-occipital Diagnosis Onset Date 09/24/21 M3 OT- IP Subjective and Pain Start: 09/25/21 13:05 Freq: Status: Active Protocol: Document 09/25/21 10:19 [facility] (Rec: 09/25/21 13:29 [facility] [id number]) OT- Subjective Occupational Therapy Visit Type Type Initial Evaluation Visit Start Time 10:19 Visit Stop Time 11:00 Total Visit Minutes 41 Occupational Therapy Visit Comments Patient Comments Pt's son in the room and pt agreed to do OT eval. Patient/Caregiver Goals Pt did not state. OT Pain Assessment Pain When Pain Assessed At Rest Pain Present Pain Present Denied Pain M4 OT- IP ADL's Start: 09/25/21 13:05 Freq: Status: Active Protocol: Document 09/25/21 10:19 [facility] (Rec: 09/25/21 13:29 [facility] [id number]) OT [id number] Comments OT Self-Feeding Comments Not at meal time. OT ADL-Grooming General Evaluation Grooming Ability Standby Assistance Comments OT Grooming Comments Increased time but able to do after set-up while standing at the sink. OT ADL-Oral Care General Eval Oral Care Ability Independent OT ADL-Dressing General Eval Lower Body Dressing Ability Independent Comments OT Dressing Comments Pt able to maximino/doff his socks while seated on the edge of the bed. OT ADL-Toileting Comments OT Toileting Comments Pt not having to go at this time. OT ADL-Bathing Comments OT Bathing Comments Not performed. M5 OT- IP IADL's Start: 09/25/21 13:05 Freq: Status: Active Protocol: Document 09/25/21 10:19 [facility] (Rec: 09/25/21 13:29 [facility] [id number]) OT-Instrumental Activities of Daily Living Home Safety Awareness Home Safety Comments Pt has expressive greater than receptive aphasia therefore making it difficulty to truly assess his cognitive needs. In addition pt has blurred vision and would be best at this time if pt were have someone with him 06/05 to assist mainly with his cognitive needs. Driving Driving Concerns Identified Regarding Safety Driving Comments Due to cognitive deficits, suggested pt not to drive at this time. M6 OT- IP Functional Cognition Start: 09/25/21 13:05 Freq: Status: Active Protocol: Document 09/25/21 10:19 [facility] (Rec: 09/25/21 13:29 [facility] [id number]) Cognitive Factors Limiting Selfcare Function Cognitive Ability Level of Alertness Alert Patient Orientation Name,Year,Situation Attention Span Ability Capable of Focused Attention, Capable of Sustained Attention Ability to Follow Commands Able to Follow One Step Commands with Increased Time, Able to Follow One Step Commands with Repetition Cognitive Tests SLUMS Initiated SLUMS but unable to complete the clcok and shape assessment as pt states having blurred vision and seeing double. Pt as having trouble getting the words out able to recall 6 animals in one minute , not able to repeat 2,3 or 4 digits numbers backwards, able to answer 1/4 questions right after a paragraph read. So far pt's score implies cognitive deficits. Cognitive Comments Cognitive Assessment Comments Pt having difficulty to follow more than one step commands and needing visual cues to follow for SLUMS testing. Pt not able to initially identify words for index, middle, ring , and thumb when trying to do light touch. OT- Vision and Hearing OT- Vision Assessment Vision Assessment Comments Pt complaining of blurred vision and seeing double. Left eye slight lag during scanning. Pt states left eye not able to see clearly at this time. M7 OT- IP Mobility and Balance Start: 09/25/21 13:05 Freq: Status: Active Protocol: Document 09/25/21 10:19 [facility] (Rec: 09/25/21 13:29 [facility] [id number]) OT- Bed Mobility Assessment Supine to Sit Supine to Sit Assist Independent Sit to Supine Sit to Supine Assist Independent Scooting Scooting to Edge of Bed Independent Scooting Up and Down in Bed Independent OT-Transfer Assessment Sit to and From Stand Sit to and from Stand Independent Transfers Transfer Ability Independent Technique Transfer Destination Bed Devices Transfer Assistive Devices Gait Belt Comments Mobility Comments Pt independently able to get in and out of the bed and get around in the room without assist. OT- Balance Assessment Sitting Balance and Reactions Static Sitting Balance Ability Normal Dynamic Sitting Balance Ability Normal Standing Balance and Reactions Static Standing Balance Ability Normal M8 OT- IP Objective Assessments Start: 09/25/21 13:05 Freq: Status: Active Protocol: Document 09/25/21 10:19 [facility] (Rec: 09/25/21 13:29 [facility] [id number]) OT Gross Range of Motion Upper Extremity Range of Motion Assessment Within Functional Limits OT Strength Upper Extremity Strength Assessment Right Impaired Comments Strength Comments LUE 5/5 , RUE 4+/5 OT-Muscle Tone Assessment Muscle Tone WNL Yes Comments Muscle Tone Comments Pt states prior has a slight tremor. OT Sensation Assessment Comments Summary Comments Intact for ligth touch but having trouble to get the words out for each body part touched. 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 Pt has slight decrease in strength for RUE. Due to his cognitive deficits would be best for pt to have 24/7 assist. Pt's son states that his dad can go stay with other family if needed. Pt would greatly benefit from outpt OTORHINOLARYNGOLOGIST and OT and also to get his eyes checked. Goals Dressing Goal Independent Toileting Goal Independent Bathing Goal Independent Toilet Transfer Goal Independent Shower Transfer Goal Independent Days to Meet Goals 3 Frequency of Treatment Frequency Of Treatment Once a Day Treatment Plan OT Treatment Plan ADL Training,Functional Cognition Training,Functional Mobility,Vision Retraining, Patient/Family Education, Discharge Planning Other Treatment Recommendations and Next 9 hole peg test, shower Treatment Focus Discharge Recommendations OT Discharge Recommendations Home with 24/7 Assist Available,Outpatient OTORHINOLARYNGOLOGIST/OT Transportation Needs at Discharge Private Vehicle
[2021-09-25 11:51] VITALS: BP 139/83; PULSE 76; RESP 18; TEMP 36.7; O2SAT 95
--- NOTE | 2021-09-25 12:35 | PT.IIE ---
Current Diagnoses Cerebral infarction, unspecified (09/24/21) Medical History (Last Updated 09/24/21 @ 19:45 [facility] History of colon cancer No chronic diseases present Physical Therapy Inpatient Evaluation/Re-Eval M1 PT/OT-IP Prior Functional Status Start: 09/25/21 08:51 Freq: NEEDED Status: Active Protocol: Document 09/25/21 12:35 [facility] (Rec: 09/25/21 12:44 Dina [id number]) Medical Review Prior Functional Status Medical History Reviewed Yes Diet/Fluid Consistency Regular Communication Pt was able to communicate, but had moderate difficulty word finding and producing speech. Mobility and Gait Occasionally uses SPC for amb and is typically limited w/amb to several hundred yards. Pt has had limited amb since colorectal cancer in 2011. Activities of Daily Living and IADL's Indep in all ADLs Social History Household Members none Living Arrangements House Number of Floors (Floors) 3 or More Floors Number of Stairs To Enter/Railing? 1-2 CHILO w/no railing, enter on main floor, two flights of 12 steps inside, railing on R when ascending Home Environment Standard Height Toilet,Walk in Shower Home Equipment Straight Cane,Hand Held Shower ,Long Handled Shoe Horn, Volleyball Commentator,Sock Aid,Grab Bars Near Toilet Employment Status Retired Additional Social History Comment Son was in room during session and assisted in providing history. Pt lives on [address]. M2 PT-IP Current Condition Start: 09/25/21 08:51 Freq: NEEDED Status: Active Protocol: Document 09/25/21 12:35 JRyan (Rec: 09/25/21 12:44 Dina [id number]) Physical Therapy Current Condition Current Condition Evaluation Date 09/25/21 Treatment Diagnosis Possible subacute CVA vs metastasis, weakness, difficulty walking M3 PT-IP Subjective Start: 09/25/21 08:51 Freq: NEEDED Status: Active Protocol: Document 09/25/21 12:35 JRyan (Rec: 09/25/21 12:44 Dina [id number]) Subjective Physical Therapy Visit Type Type Initial Evaluation Visit Start Time 12:10 Visit Stop Time 12:35 Total Visit Minutes 25 Notes SPT Misa was directly supervised by JOSE Tucker Number of X [employer] 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 M4 PT-IP Mobility and Gait Start: 09/25/21 08:51 Freq: NEEDED Status: Active Protocol: Document 09/25/21 12:35 J (Rec: 09/25/21 13:11 J [id number]) PT-Bed Mobility Assessment Rolling Type of Rolling Roll to Left Level of Assist Standby Assistance Supine to Sit Supine to Sit Standby Assistance,1 Person Assistance Scooting Scooting to Edge of Bed Standby Assistance Scooting Up and Down in Bed Standby Assistance PT-Transfer Assessment Sit to and From Stand Sit to and from Stand Contact Guard Assistance Equipment Transfer Assistive Device Gait Belt Orthotic/Prosthetic Devices or Brace: No Transfers Transfer Destination Chair Transfer Technique w/amb Transfer Ability Level of Assist Standby Assistance,Contact Guard Assistance,1 Person Assistance Comments Mobility Comments Pt completed bed mob and transfer w/CGA and gait belt. Pt did move through sit<>stand quickly, but improved his form and eccentric control after visual and verbal cueing . Gait Assessment Gait Gait Assistance Required: Contact Guard Assist,1 Person Assist Distance (Feet) 384 Able to Maintain Weight Bearing Status Yes During Gait Assistive Devices Assistive Device Gait Belt Orthotic/Prosthetic Devices or Brace: No Gait Deviations General Gait Pattern Decreased Stride Length Factors Limiting Gait Function Factors Limiting Gait Function Decreased Activity Tolerance Comments Gait Comments Pt amb w/significantly decreased pushoff, mild thoracic kyphosis, decreased arm swing L>R, mild-mod L foot ER, mild decreased L knee ext , and decreased trunk rotation . Pt amb at normal pace and req rest afterwards. Pt reported distance amb before fatigue was his baseline. Gait deviations increased brannon decreased arm swing, L foot ER , and decreased L knee ext towards end of amb. Stair Climbing Assessment Evaluation Level of Assist On Stairs Contact Guard Assistance,1 Person Assistance Devices Stair Climbing Assistive Devices Left Railing Technique/Endurance Stair Climbing Direction Ascend and Descend Stair Climbing Technique Step Over Step Number of Steps Climbed 12 Query Text: Stair Climbing Set # Repetitions (reps) 4 Comments Stair Climbing Comments Pt completed stairs w/o req rest break, good foot placement, and maintained balance throughout amb. PT-Balance Assessment Sitting Balance and Reactions Static Sitting Balance Ability Normal Standing Balance and Reactions Static Standing Balance Ability Normal Dynamic Standing Balance Ability Normal Device Used gait belt M5 PT-IP Objective Assessments Start: 09/25/21 08:51 Freq: NEEDED Status: Active Protocol: Document 09/25/21 12:35 JG (Rec: 09/25/21 13:11 [id number]) Orientation Orientation/Cognition Level of Alertness Alert Orientation Name,Place,Situation Language Function Ability Expressive Aphasia,Word Finding Difficulties Safety Awareness Understands Safety Issues Memory Description No Deficits Noted Gross Range of Motion Upper Extremity ROM Assessment Bilaterally Impaired Impairments shld flex mild limit Lower Extremity ROM Assessment Bilaterally Impaired Impairments decreased hip ext during gait Strength Upper Extremity Strength Assessment Within Functional Limits Lower Extremity Strength Assessment Within Functional Limits Comments Strength Comments Pt is generally 4/5 to 5/5 bilat UE and LE. However, bilat PF was 4-/5 which was reinforced during amb when pt had lack of adequate pushoff. 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 Muscle Tone Muscle Tone WNL Yes M6 PT-IP Treatment Start: 09/25/21 08:51 Freq: NEEDED Status: Active Protocol: Document 09/25/21 12:35 JG (Rec: 09/25/21 13:11 J [id number]) Physical Therapy Treatment Exercises Exercises Ankle Pumps,Heel Slides, Straight Leg Raises Education Education Provided Safety M7 PT-IP Assessment and Plan Start: 09/25/21 08:51 Freq: NEEDED Status: Active Protocol: Document 09/25/21 12:35 JG (Rec: 09/25/21 13:11 [id number]) PT Summary Assessment and Plan Potential Rehabilitation Potential Excellent Status of Condition at Evaluation Evolving Summary Impairments ROM,Strength,Coordination, Sensation,Gait,Activity Tolerance Assessment Summary Pt is 61 year old male admitted to [facility] after several days of confusion. Subacute CVA infarction sites were noted in imaging and potential metastasis is being ruled out. Pt presented today w/alert cognitive state, impaired word finding ability, and impaired expressive aphasia. During examination, pt completed bed mobility, transfers, and amb w /CGA. However, pt became fatigued after amb which will limit his ability to amb in his home and community. Pt also struggled w/push off during gait which increases his energy expenditure. Goals Bed Mobility Goal Independent Transfer Goal Independent Gait Goal Independent Gait Distance 500 Other Goals Pt has adequate pushoff and maintains foot alignment during gait Days to Meet Goals 2 Frequency of Treatment Frequency Of Treatment Once a Day Treatment Plan Physical Therapy Treatment Plan Gait Training,Therapeutic Exercise,Discharge Planning, Neuromuscular Re-ed, Coordination Retraining,Manual Therapy Other Recommendations and Next Treatment Focus on gait activity Focus tolerance mixed w/stair activity tolerance. Patient education re walking program. Therapeutic exercise to increase activity tolerance. Patient and caregiver training on discharge planning. Weight Bearing Status Weight Bearing Status Full Weight Bearing Recommendations To Nursing Amount of Assist Needed Standby Assistance,1 Person Assist Discharge Recommendations PT Discharge Recommendations Home with Assistance,Home Health,Outpatient PT Transportation Needs at Discharge Private Vehicle Treatment was provided by Misa Hernandez, SHANIA and supervised by Caitlin Desai, PT. I personally reviewed this note and agree with its contents.
--- NOTE | 2021-09-25 14:40 | P.DS_ITS ---
History of Present Illness History of Present Illness Date Patient Seen: 09/25/21 Time Patient Seen: 14:40 Chief complaint: Confusion Narrative: Kang eDxter is a 61 yr old male with a hx of colon cancer 2011? brought in to ED by [facility] earlier today.? The patient was reported to feeling poorly x2 days, he present to the ED with slow speech, confused, limited participation in HPI, ROS, or medications. The son was only able to confirm a history of colon cancer.?The patient? denied headache, visual change, no sore throat, no difficulty swallowing, chest pain, cough or dyspnea, or abdominal complaints.? He has no abdominal pain, no change in bowels, and no weight loss.? His care was elsewhere, we have no records here.? He obeys commands, he participated in neurology exam.? He has displaying confusion.? He is discharged to time.? His son says he has been this way for about 2 days.? He is ambulatory without discomfort.? There is no history of stroke, no immediate concerns for infection.?? A significant portion of patient's past medical history was obtained in ED from the patient's son, being the patient was disoriented, confused and had no recall.? Upon admit patient is alert and orientated denies taking any medication at this time but states that he previously had been on multiple medications but unable to recall what they were or for what medical conditions. Patient originally presented to the ED with a BP 180/192, upon admit temp 97.1?, BP 174/99, HR 82, R 15, O2 saturation 95% on room air.? Patient does have a mildly elevated WBC 11.8, with a left shift neutrophils 8800, the remainder of CBC and CMP WNL.? Patient does have alk phos 137.? Urinalysis was negative for infection tox screen was positive for THC.? Total creatinine kinase 29, troponin WNL, BNP 305, EtOH negative.? Patient's EKG demonstrated Normal sinus rhythm wit h a left axis deviation, incomplete right bundle branch block, inferior infarct , age undetermined. Patient's chest x-ray demonstrated no acute cardiopulmonary processes.? Patient's D-dimer> 5250.? Patient's CTA demonstrated mild mediastinal lymphadenopathy, nonspecific.? This could be reactive although primary lymphoproliferative disorder or metastatic disease could appear similar.? Clinical correlation will be needed along with potentially follow-up to help differentiate. No acute airspace opacity in the lungs.? Mild apical predominant emphysematous changes. No pulmonary embolism.? Head CT demonstrated subacute versus chronic right parietal occipital and left frontal lobe infarcts, with no acute intracranial abnormality.? Patient's brain MRI demonstrated?areas of restricted diffusion in the left frontal lobe and left parieto-occipital lobe are most likely subacute infarcts, although this is not entirely definitive and there is some concern for metastatic disease given the history of colon cancer. Remote right parietal lobe infarct with encephalomalacia and gliosis. Global cerebral volume loss and moderate chronic microvascular ischemic change.? Patient to be admitted for subacute CVA, hypertensive urgency, lymphadenopathy, leukocytosis thoracic, possible metastatic disease, with a history of colon cancer. Discharge Providers Provider Date of admission: 09/24/21 16:30 Discharge Date: 09/25/21 Consults: 09/24/21 18:16 Consult to Discharge Planning Routine Comment: Consult to Occupational Therapy Evaluate & Treat Comment: Physician Instructions: Evaluate and treat Consult to Physical Therapy Evaluate & Treat Comment: Physician Instructions: Evaluate and Treat 09/24/21 18:17 Consult to Discharge Planning Routine Comment: Consult to Occupational Therapy Evaluate & Treat Comment: Physician Instructions: Evaluate and treat Consult to Physical Therapy Evaluate & Treat Comment: Physician Instructions: Evaluate and Treat Consult to Speech Therapy Evaluate & Treat Comment: Physician Instructions: Evaluate and treat 09/24/21 20:34 Consult to Dietitian, Adult Routine Comment: Reason For Exam: Overweight Discharge provider: Debi Tovar MD Summary Hospital Course Discharge Diagnosis: 1. Subacute CVA 2. Hypertension 3. Rheumatoid arthritis 4. Colon polyp 5. History of rectal cancer 6. Peripheral artery disease 7. History of lower limb ischemia 8. 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 Head CT and MRI confirmed parieto-occipital infarcts which are subacute. Patient was seen by physical therapy and occupational therapy. They recommended discharge home with 24 hour care in outpatient rehabilitation. In addition the patient had a cardiac echo, revealed no source of embolic focus, bubble study was suboptimal. Ejection fraction was 55-60%, there was no valvular abnormality. The patient's son was here, he indicated that is day of would be living with the family to allow for 24 hour care. The patient has been off his usual medications for the past 6 months. We will verify medications with [facility] on work as and restart those medications at this time. His NIH score is 1, the patient will be discharged on aspirin in addition to statin, will verify his home medications and resume those as well. The patient will be moving to [place], will be referred to a primary care provider in [place]. In addition the patient needs follow-up of CT of the chest which demonstrated some lymphadenopathy. He also needs a follow-up appointment with Cardiology for an outpatient ZIO patch to rule out the possibility of atrial arrhythmias as an etiology of his strokes. Patient is deemed appropriate for discharge and arrangements will be made to discharge him home. Status at Discharge Cognitive/behavioral status at discharge: oriented Functional status at discharge: independent ambulation Overall status at discharge: patient is progressing back to baseline Exam Vital Signs (past 8 hours): - 09/25/21 07:30 09/25/21 08:22 09/25/21 11:51 Temperature 98.8 F 98.0 F Pulse Rate 70 68 76 Respiratory Rate 16 18 Blood Pressure 152/84 H 134/77 139/83 Pulse Oximetry 99 95 Oxygen Delivery Method Room Air Oxygen Flow Rate 0 Narrative Exam Narrative: Pleasant gentleman lying in bed in no acute distress HENWI Other: Normocephalic atraumatic, extraocular muscles are intact, oropharynx is clear, there is no facial asymmetry Resp Other: Lungs are clear to auscultation Cardio Other: Cardiac exam: Regular rate and rhythm normal S1-S2 GI Other: Abdomen soft and nontender Neuro Other: Cranial nerves 2-12 are intact, strength is symmetric and equal, sensation appears grossly intact, gait is not assessed Extrem Other: Extremity no edema Objective Labs Result Diagrams: 09/25/21 06:00 09/24/21 14:10 Labs: Laboratory Results - last 24 hr 09/24/21 09/24/21 09/24/21 14:10 14:10 14:20 WBC RBC Hgb Hct MCV MCH MCHC RDW Plt Count Neut % (Auto) Lymph % (Auto) [place] % (Auto) Eos % (Auto) Baso % (Auto) Neut # (Auto) Lymph # (Auto) [place] # (Auto) Eos # (Auto) Baso # (Auto) D-Dimer > 5250 H GGT Troponin I < 0.012 NT-Pro-B Natriuret Pep 305 H Triglycerides Cholesterol LDL Cholesterol, Calc HDL Cholesterol Procalcitonin U Opiates 300ng/mL cut Ur Oxycodone Screen Urine Methadone Screen Ur Barbiturates Screen U Tricyclic Antidepress Ur Phencyclidine Scrn Ur Amphetamines Screen U Methamphetamines Scrn Ur MDMA Scrn (Ecstasy) U Benzodiazepines Scrn Urine Cocaine Screen U Marijuana (THC) Screen Ethyl Alcohol < 10 SARS-CoV-2 (PCR) 09/24/21 09/24/21 09/24/21 14:52 16:29 20:05 WBC RBC Hgb Hct MCV MCH MCHC RDW Plt Count Neut % (Auto) Lymph % (Auto) [place] % (Auto) Eos % (Auto) Baso % (Auto) Neut # (Auto) Lymph # (Auto) [place] # (Auto) Eos # (Auto) Baso # (Auto) D-Dimer GGT Troponin I NT-Pro-B Natriuret Pep Triglycerides 123 Cholesterol 237 H LDL Cholesterol, Calc 178 H HDL Cholesterol 34 L Procalcitonin U Opiates 300ng/mL cut Negative Ur Oxycodone Screen Negative Urine Methadone Screen Negative Ur Barbiturates Screen Negative U Tricyclic Antidepress Negative Ur Phencyclidine Scrn Negative Ur Amphetamines Screen Negative U Methamphetamines Scrn Negative Ur MDMA Scrn (Ecstasy) Negative U Benzodiazepines Scrn Negative Urine Cocaine Screen Negative U Marijuana (THC) Screen Positive H Ethyl Alcohol SARS-CoV-2 (PCR) Negative 09/24/21 09/24/21 09/24/21 20:05 20:05 20:05 WBC RBC Hgb Hct MCV MCH MCHC RDW Plt Count Neut % (Auto) Lymph % (Auto) [place] % (Auto) Eos % (Auto) Baso % (Auto) Neut # (Auto) Lymph # (Auto) [place] # (Auto) Eos # (Auto) Baso # (Auto) D-Dimer GGT 31 Troponin I < 0.012 NT-Pro-B Natriuret Pep Triglycerides Cholesterol LDL Cholesterol, Calc HDL Cholesterol Procalcitonin 0.07 U Opiates 300ng/mL cut Ur Oxycodone Screen Urine Methadone Screen Ur Barbiturates Screen U Tricyclic Antidepress Ur Phencyclidine Scrn Ur Amphetamines Screen U Methamphetamines Scrn Ur MDMA Scrn (Ecstasy) U Benzodiazepines Scrn Urine Cocaine Screen U Marijuana (THC) Screen Ethyl Alcohol SARS-CoV-2 (PCR) 09/25/21 09/25/21 06:00 06:00 WBC 7.6 RBC 5.09 Hgb 14.9 Hct 44.4 MCV 87.4 MCH 29.2 MCHC 33.4 RDW 14.6 Plt Count 314 Neut % (Auto) 70.5 Lymph % (Auto) 16.8 L [place] % (Auto) 9.2 Eos % (Auto) 2.8 Baso % (Auto) 0.7 Neut # (Auto) 5300 Lymph # (Auto) 1300 [place] # (Auto) 700 Eos # (Auto) 200 Baso # (Auto) 100 D-Dimer GGT Troponin I < 0.012 NT-Pro-B Natriuret Pep Triglycerides Cholesterol LDL Cholesterol, Calc HDL Cholesterol Procalcitonin U Opiates 300ng/mL cut Ur Oxycodone Screen Urine Methadone Screen Ur Barbiturates Screen U Tricyclic Antidepress Ur Phencyclidine Scrn Ur Amphetamines Screen U Methamphetamines Scrn Ur MDMA Scrn (Ecstasy) U Benzodiazepines Scrn Urine Cocaine Screen U Marijuana (THC) Screen Ethyl Alcohol SARS-CoV-2 (PCR) [facility] Medical History (Updated 09/24/21 @ 19:45 by [facility]AB [facility] History of colon cancer No chronic diseases present Family History (Updated 09/24/21 @ 20:23 by LIBERTY Sullivan) Mother Cancer Father Cancer Social History household members: none Smoking Status: Current every day smoker alcohol intake: current Discharge Assessment & Plan Assessment and Plan Assessment: 1. Acute metabolic encephalopathy related to underlying subacute stroke 2. Hypertension 3. Hyperlipidemia Number for peripheral neuropathy 5. Rheumatoid arthritis Plan of Treatment: Discharge home today Medications as prescribed Patient is referred to primary care provider in [place] for post hospital follow-up and a cardiology referral Discharge Plan Discharge Plan Patient Disposition: Home Discharge orders & Medications Prescriptions: New atorvastatin [Lipitor] 20 mg Tablet 80 mg PO BEDTIME Qty: 30 0RF clopidogrel 75 mg Tablet 75 mg PO DAILY Qty: 30 0RF lisinopril 20 mg Tablet 20 mg PO DAILY Qty: 30 0RF hydroxychloroquine 200 mg tablet 200 mg PO BID Qty: 60 0RF methotrexate sodium 2.5 mg tablet 20 mg PO QWEEK Qty: 90 0RF No Action No Known Home Medications 0RF Discharge Health Status Multidrug resistant organism: No MDRO Diet/Activity/Treatments Diet: Diet as Tolerated, Low-sodium and Low-cholesterol Activity: as tolerated
[2021-09-25 15:23] VITALS: BP 153/96; PULSE 84; RESP 18; TEMP 36.6; O2SAT 98
--- NOTE | 2021-09-25 15:29 | ST.IPIE ---
Visit Care Team Role Provider Type Contreras Pelayo MD Emergency Provider Physician Referring Provider Specialty: Emergency Medicine Address: [address] [place] [address], [id number] Email: [email or web address] Debi Tovar MD Admit Provider Physician Attending Provider Specialty: Internal Medicine Address: [address] [place] [address], [id number] Email: [email or web address] Current Diagnoses Cerebral infarction, unspecified (09/24/21) Past Medical History (Last Updated 09/24/21 @ 19:45 by [facility]) History of colon cancer (Medical) No chronic diseases present (Medical) ST IP Initial Evaluation Report SPECIAL LIBRARY LIBRARIAN Adult Cognitive Linguistic Eval Start: 09/25/21 15:11 Freq: Status: Active Protocol: Document 09/25/21 15:11 ZS (Rec: 09/25/21 15:29 ZS [id number]) Adult Cognitive Linguistic Evaluation Session Time Visit Start Time 14:45 Visit Stop Time 15:00 Total Visit Minutes 15 Setting Assessment Location Acute Care Visit Type Note Type Initial evaluation Next Note Type Next Note Type Treatment Note Patient Information Identification Type Name,Wristband Medical History Kang Dexter is a 61 yr old male with a hx of colon cancer 2012 brought in to ED by [facility] earlier today.? The patient was reported to feeling poorly x2 days, he present to the ED with slow speech, confused, limited participation in HPI, ROS, or medications. The son was only able to confirm a history of colon cancer.?The patient denied headache, visual change , no sore throat, no difficulty swallowing, chest pain, cough or dyspnea, or abdominal complaints.? He has no abdominal pain, no change in bowels, and no weight loss. ? His care was elsewhere, we have no records here.? He obeys commands, he participated in neurology exam .? He has displaying confusion .? He is discharged to time.? His son says he has been this way for about 2 days.? He is ambulatory without discomfort. ? There is no history of stroke, no immediate concerns for infection.? A significant portion of patient's past medical history was obtained in ED from the patient's son, being the patient was disoriented, confused and had no recall. Upon admit patient is alert and orientated denies taking any medication at this time but states that he previously had been on multiple medications but unable to recall what they were or for what medical conditions. Patient's CTA demonstrated mild mediastinal lymphadenopathy, nonspecific.? This could be reactive although primary lymphoproliferative disorder or metastatic disease could appear similar.? Clinical correlation will be needed along with potentially follow- up to help differentiate. No acute airspace opacity in the lungs.? Mild apical predominant emphysematous changes. No pulmonary embolism . Head CT demonstrated subacute versus chronic right parietal occipital and left frontal lobe infarcts, with no acute intracranial abnormality.? Patient's brain MRI demonstrated areas of restricted diffusion in the left frontal lobe and left parieto-occipital lobe are most likely subacute infarcts, although this is not entirely definitive and there is some concern for metastatic disease given the history of colon cancer. Remote right parietal lobe infarct with encephalomalacia and gliosis. Global cerebral volume loss and moderate chronic microvascular ischemic change. Patient to be admitted for subacute CVA, hypertensive urgency, lymphadenopathy, leukocytosis thoracic, possible metastatic disease, with a history of colon cancer . Language(s) Spoken in the Home Hungarian Education Level High school diploma Hearing Hearing Level Normal Vision Vision Status Impaired Comments Kang did not have glasses with him. Subjective Patient Report Kang was reclined in his bed and son was seated in chair when clinician arrived. He sat upright and repositioned his bed independently to participate in assessment. Mental Status Alert,Responsive,Cooperative Assessment Oral Motor Examination Completed No: No concerns with speech or swallow Informal Assessment Receptive Language Normal Yes Expressive Language Normal Yes Pragmatic Language Normal Yes Speech Normal Yes Cognition Normal No Cognitive Impairment(s) Short-term memory Formal Assessment Standardized Test/Screener Type [facility] Mental Status ([facility]) Administration Complete Results Results of the [facility] place Kang's score at 16/30, indicating dementia based on his education level. Difficult to determine what Kang's baseline cognitive level is, though Kang reported difficulty with memory-related tasks in his daily life prior to admission to [facility]. Kang answered orientation questions x3, though demonstrated difficulty with item recall, generative naming, mental manipulation of numbers, and recalling details from a story. Kang recognized when he was having difficulty with the generative naming task and number reversing task, as evidenced by him saying did I say that already? for perseverated items and saying I don't know when he was unable to complete a task. Kang had difficulty with immediate recall of items, consistently recalling 4/5 items (80% accuracy), though maintained this accuracy level when recalling items later. When asked questions about his expressive and receptive language, Kang responded that he has difficulty with both, though answered the question very clearly. Communication difficulty may be due to short term and working memory deficits. Findings/Results Language Function Within normal limits Cognitive Function Severely impaired Findings Kang presents with a severe cognitive deficit characterized by impaired memory. Unclear what Kang's baseline was, though it is recommended Kang receive treatment for cognitive impairment due to severity and reported impact on daily life . Cognitive Communication Deficits Self-awareness of Cognitive- Situational awareness ( Communication Deficits recognition of problem in context;in real time) Impact on Functioning Activity Limits/Particip.Rest. Sev: Interpersonal Interactions Safety Risks Sev: Being Left Alone at Home Reacting to Emergency Managing Medication Prognosis Prognosis Fair Based on Cognitive status,Comorbidities ,Duration of symptoms/severity ,Time since onset Plan of Care Speech-Language Treatment Yes Frequency 1-2x per day Patient/Caregiver Education Described results of evaluation,Patient expressed understanding of evaluation, Patient expressed agreement with goals and treatment plans ,Family/caregivers expressed understanding of evaluation, Family/caregivers expressed agreement with goals and treatment plan,Patient requires further education/ training,Family/caregivers require further education/ training Short Term Goals 1. Kang will independently utilize external memory aids to recall information. 2. Kang will utilize internal memory aids given visual and verbal cueing to increase recall of information/items.
[2021-09-25] MEDS: INFLUENZA VACCINE QIV 0.5 ML SYRINGE IM (15:42)
--- NOTE | 2021-09-25 16:09 | CM.DANOTE ---
DCP/Assessment: Reviewed chart. Patient is a 61yr old male admitted to [facility] with confusion. No PCP listed. Primary payor is 1)Medicare. Met with patient and son/Jarett at bedside explained CM/SW role. Patient reports that he resides alone on [facility]. Patient reports that he is completely I with all ADL's. Patient had episode of confusion which led to hospitalization. Medical work up has been negative. Current outpatient recommendation is for patient to follow up as outpatient with PCP. Patient currently without PCP. Family reports that patient will be staying with family in [place] upon d/c from [facility] SOFTWARE APPLICATION TESTER provided patient with list of providers in [facility]. No additional needs identified. P: Home with family when medically stable. 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 No Advance Directives on File No History Provided By Patient,Family Member,Medical Record Prior Living Arrangements House Household Members none Type of transporation used prior to Drives own vehicle admit Independent with ADL's Yes Is patient alert and oriented? Yes Caregiver for Another No Barriers to Discharge No Discharge Plan Home Transportation Arrangement Family to provide transport Referrals Initiated Other Additional Comment Provided patient with community resources for primary care provider's in [place]. Whiteboard Updated in Patient Room with Yes name and ext. # of Dye Machine Tender Review Status In Process Next Review Type Continued Stay Review
--- NOTE | 2021-09-25 17:19 | PC.NURSE ---
Discharge Note Patient A&O, VSS, RA, no complaints of pain or discomfort. Discharge packet reviewed with patient and son. All questions/concerns addressed. PIV/TELE discontinued. Belongings packed and given to patient along with discharge packet. Patient taken down via wheelchair to POV.
[2021-09-25 23:05] LABS: BUN Creatinine Ratio 12.6 (6-22); Blood Urea Nitrogen 12 mg/dL (9-20); Calcium 9.7 mg/dL (8.4-10.2); Carbon Dioxide 23 mmol/L (22-32); Chloride 109 mmol/L (98-107); Estimated Glomerular Filt Rate > 60.0 mL/min (>60); Glucose 99 mg/dL (80-110); HEMOLYSIS < 15 (0-50); Potassium 4.4 mmol/L (3.4-5.1); Sodium 138 mmol/L (137-145)
== END 2021-09-25 17:20 | disposition home or self-care (01) | DRG 65 ==
LOC: ED 16:30 → AC 16:31
PROVIDERS: Nurse Practitioner Family; Admitting Provider Internal Medicine; Emergency Provider Emergency Medicine; Referring Provider Emergency Medicine; Visit Provider Internal Medicine
DX: I63.9 Cerebral infarction, unspecified (principal); G93.49 Other encephalopathy; I16.0 Hypertensive urgency; R47.02 Dysphasia; R59.1 Generalized enlarged lymph nodes; F17.210 Nicotine dependence, cigarettes, uncomplicated; E78.5 Hyperlipidemia, unspecified; M06.9 Rheumatoid arthritis, unspecified; R29.701 NIHSS score 1; Z20.822 Contact with and (suspected) exposure to COVID-19; Z85.038 Personal history of other malignant neoplasm of large intestine; Z23 Encounter for immunization
CPT/HCPCS: 36415; 70450; 70551; 71045; 71275; 80048; 80053; 80061; 80305; 80320; 82550; 82977; 83690; 83735; 83880; 84145; 84484; 85025; 85379; 87635; 90471; 90656; 93005; 93010; 93306; 96125; 96374; 97161; 97166; 99285; 99291; C9803; J1650; Q2038; Q9967